=== PATIENT | female | born 1960 | race American Indian/Alaskan Native ===

== ENCOUNTER 2016-03-22 12:30 | Outpatient (CLI) | payer MEDICAID ==
--- NOTE | 2016-03-22 15:46 | XRay Report ---
CHEST 2 VIEWS: INDICATION: Cough, shortness of breath. COMPARISON: 05/01/2013 CXR and 11/04/[address] findings. FINDINGS: Frontal and lateral chest radiographs demonstrate interval progression of right lung volume loss with diffuse haziness in the xwccq-ye-hmo lung zone with additional infiltrates in the lower lung zone medially, including juxtaphrenic peak. Rightward tracheal deviation and cardiomediastinal shift also appears slightly more pronounced, though exam in part limited due to patient rotation. Clear left lung. Stable right chest port tip likely in the right atrium, approximately 6 cm below the cavoatrial junction. Unremarkable bones. CONCLUSION: Extensive chronic right lung volume loss again noted with mild interval plain radiographic progression since April 2013 in this patient with history of lung cancer, as described. Thank you for the opportunity to participate in this patient's care.
== END 2016-03-22 12:31 | disposition home or self-care (01) ==
LOC: SPVIMAG 12:30
PROVIDERS: ATTEND Internal Medicine Hematology & Oncology
DX: R06.02 Shortness of breath (principal); R05 Cough; R91.8 Other nonspecific abnormal finding of lung field
CPT/HCPCS: 71020

== ENCOUNTER 2016-06-02 08:08 | Outpatient (CLI) | payer MEDICAID ==
--- NOTE | 2016-06-02 16:03 | Cat Scan Report ---
CT CHEST, ABDOMEN AND PELVIS WITH CONTRAST: 06/02/16 08:08:00 CLINICAL: Metastatic lung cancer followup. COMPARISON: 11/04/15 TECHNIQUE: Volumetric acquisition and 1.25 millimeter scan reconstructions after the uneventful intravenous injection of 100 cc of Omnipaque 300. Consent was obtained prior to the administration of the contrast. Oral contrast was also given. FINDINGS: Chest: Stable weight loss in the right lung and stable nonenhancing soft tissue opacity of the right upper lobe and superior segment of the right lower lobe. No pulmonary nodule and no enhancing mass. No pleural effusion. Normal aorta, heart and pulmonary arteries. A right Gejcgv-d-Ybrp tip is in the right atrium. Normal esophagus and trachea. No mediastinal or hilar lymphadenopathy.No axillary or supraclavicular lymphadenopathy. Abdomen: Normal liver, gallbladder and bile ducts. No liver mass. The adrenal glands and kidneys are normal. The renal collecting systems and ureters are nondilated. Normal stomach, duodenum, pancreas and spleen. Mild calcification of the abdominal aorta. The inferior vena cava is normal. No mass or lymphadenopathy.No ascites.Normal small bowel. Normal ascending, transverse and descending colon. The appendix is normal. Pelvis: Small bicornuate uterus. Ovaries are not identified. The urinary bladder wall is grossly thick with no mass or calculus. Normal rectum and sigmoid colon. No pelvic fluid. Bone windows demonstrate no suspicious bone lesion. IMPRESSION: Stable disease. No mass or lymphadenopathy.
== END 2016-06-02 08:09 | disposition home or self-care (01) ==
LOC: SPVIMAG 08:08
PROVIDERS: ATTEND Internal Medicine Hematology & Oncology
DX: C78.01 Secondary malignant neoplasm of right lung (principal); I70.0 Atherosclerosis of aorta; Q51.3 Bicornate uterus
CPT/HCPCS: 71270; 74178; Q9967

== ENCOUNTER 2016-10-26 08:51 | Outpatient (CLI) | payer MEDICAID ==
--- NOTE | 2016-10-27 15:21 | Cat Scan Report ---
CT CHEST, ABDOMEN AND PELVIS WITH CONTRAST: 10/26/16 08:51:00 CLINICAL: Lung cancer followup. COMPARISON: 06/02/16 TECHNIQUE: Volumetric acquisition and 1.25 millimeter scan reconstructions after the uneventful intravenous injection of 100 cc of Omnipaque 300. Consent was obtained prior to the administration of the contrast. Oral contrast was also given. FINDINGS: Chest: Stable volume loss in the right lung and stable nonenhancing soft tissue opacity of the right upper lobe and superior segment of the right lower lobe. No pulmonary nodule and no enhancing mass. Stable pleural thickening in the right hemithorax. No pleural effusion. Normal aorta, heart and pulmonary arteries. Normal esophagus and trachea. No mediastinal or hilar lymphadenopathy.No axillary or supraclavicular lymphadenopathy. Abdomen: Normal liver, gallbladder and bile ducts. Normal stomach, duodenum, pancreas and spleen. An 8 mm nodule of the medial limb of the left adrenal gland is not significantly changed compared to prior exams. Normal kidneys. Normal aorta and inferior vena cava. No lymphadenopathy.No ascites.Normal small bowel. Normal ascending, transverse and descending colon. Normal appendix. Pelvis: Small bicornuate uterus. Ovaries are not identified. Normal urinary bladder and rectum.. Bone windows demonstrate no suspicious bone lesion. IMPRESSION:Stable disease.
== END 2016-10-26 08:52 | disposition home or self-care (01) ==
LOC: SPVIMAG 08:51
PROVIDERS: ATTEND Internal Medicine Hematology & Oncology
DX: C34.11 Malignant neoplasm of upper lobe, right bronchus or lung (principal); E27.8 Other specified disorders of adrenal gland; Q51.3 Bicornate uterus; F41.9 Anxiety disorder, unspecified; D64.9 Anemia, unspecified
CPT/HCPCS: 71260; 74177; Q9967

== ENCOUNTER 2017-02-20 09:19 | Outpatient (CLI) | payer MEDICAID ==
--- NOTE | 2017-02-20 13:36 | Nuclear Medicine Report ---
NUCLEAR MEDICINE WHOLE-BODY BONE SCAN: 02/20/17 CLINICAL: History of right upper lobe lung cancer COMPARISON: 10/11/15 TECHNIQUE: 25.0-millicuries technetium 99m MDP was injected intravenously and whole body scans were obtained at 3 hours. FINDINGS: Normal distribution of radionuclide in the skeleton. Mild focal uptake in the right upper lobe lung which correlates with previous activity in the right upper lobe lung. No suspicious uptake.Normal urinary tract uptake. IMPRESSION: Negative study with no evidence of metastatic disease.
== END 2017-02-20 09:20 | disposition home or self-care (01) ==
LOC: NM 09:19
PROVIDERS: ATTEND Internal Medicine Hematology & Oncology
DX: C34.11 Malignant neoplasm of upper lobe, right bronchus or lung (principal); D64.9 Anemia, unspecified; F41.9 Anxiety disorder, unspecified
CPT/HCPCS: 78306; A9503

== ENCOUNTER 2017-06-12 08:39 | Outpatient (CLI) | payer MEDICAID ==
[2017-06-12 09:29] LABS: Blood Urea Nitrogen 13 mg/dL (7-17)
--- NOTE | 2017-06-12 14:09 | Nuclear Medicine Report ---
Whole-body bone scan: Right upper lobe lung cancer. Following injection radionuclide whole-body imaging was obtained approximately 3 hours. Normal activity is identified in the urinary tract and there is a relatively good bone to background ratio. Thank areas of increased bone activity are identified at L1, L3 and L4 seen only in the frontal projection. No other unusual areas of radio tracer uptake are identified. Comparison is made to prior exams dating back to October 2015. The distribution of radionuclide including the lumbar spine is unchanged. Impression: Stable exam. The findings of increased radiotracer uptake in the lumbar spine are unlikely to represent malignancy.
--- NOTE | 2017-06-12 14:28 | Cat Scan Report ---
CT chest, abdomen, pelvis, with contrast: Right upper lobe malignancy. Transverse images are obtained from the thoracic inlet to the ischium with coronal and sagittal 2-D reformatted images. IV and oral contrast administered. Comparison is made to prior exam on October 26, 2016. There is no obvious axillary hilar or mediastinal adenopathy appreciated. There is marked volume loss in the right lung with nonenhancing opaque tissue occupying most of the right hemithorax surrounding residual airways. There is a significant retraction shift of the mediastinum. No additional pulmonary nodules are identified in the right lung nor in the left lung. No lytic or blastic bone lesions noted. Sections carried through the abdomen again demonstrates a stable small nodule involving the medial limb of the left adrenal gland. A small peripheral cyst is noted in the right superior lateral kidney. Most of the contrast in the colon. No bowel abnormality identified. The mesentery is unremarkable. There is no periaortic adenopathy. The abdominal aorta is normal in size and contour. There is a bicornuate uterus. No significant bone lesions. Impressions: 1. Stable findings in the right upper lobe with no indication of recurrent malignancy. 2. No metastasis identified.
== END 2017-06-12 08:40 | disposition home or self-care (01) ==
LOC: NM 08:39
PROVIDERS: ATTEND Internal Medicine Hematology & Oncology
DX: C34.11 Malignant neoplasm of upper lobe, right bronchus or lung (principal); N28.1 Cyst of kidney, acquired; E27.8 Other specified disorders of adrenal gland; F41.9 Anxiety disorder, unspecified; D64.9 Anemia, unspecified; Z92.21 Personal history of antineoplastic chemotherapy
CPT/HCPCS: 36415; 71260; 74177; 78306; 82565; 84520; A9503; Q9967

== ENCOUNTER 2017-11-12 08:07 | Outpatient (CLI) | payer MEDICAID ==
[2017-11-12 09:25] LABS: Blood Urea Nitrogen 13 mg/dL (7-17)
--- NOTE | 2017-11-12 14:14 | Nuclear Medicine Report ---
BONE SCAN: History: Lung cancer. Comparison: CT chest abdomen and pelvis performed the same day. After injection of isotope, gamma camera imaging of the bony system was done. There is a normal uptake of isotope throughout the bony structures without areas of significantly increased or decreased uptake. Normal uptake in the urinary system is seen. IMPRESSION: Negative bone scan.
--- NOTE | 2017-11-12 15:13 | Cat Scan Report ---
CT CHEST WITH CONTRAST: HISTORY: Right lung cancer. COMPARISON: 06/12/17. TECHNIQUE: Helical CT in 1.25mm intervals following IV contrast. Sagittal and coronal reformatted images. FINDINGS: Thyroid gland: Normal. Esophagus: Normal. Heart: Normal. Pericardium: Normal. Mediastinum: No mediastinal mass or adenopathy is detected. Lung Irizarry: Extensive volume loss in the right upper lung with evidence of bronchiectasis is again noted. This is probably secondary to radiation changes. There is mild mediastinal shift to the right which is stable. Mild underlying centrilobular emphysematous changes are identified. No recurrent mass or nodule is appreciated. Pleural Spaces: Trace right pleural fluid is noted. No pleural nodularity. Musculoskeletal: No suspicious bony lesion or fracture is identified. IMPRESSION: Stable findings in the chest with no evidence of disease recurrence or metastasis since 06/12/17.
--- NOTE | 2017-11-12 15:16 | Cat Scan Report ---
CT ABDOMEN PELVIS WITH CONTRAST: HISTORY: Right lung cancer. COMPARISON: 06/12/17. TECHNIQUE: Helical CT in 1.25mm intervals following IV contrast. Sagittal and coronal reconstructions. FINDINGS: Liver: Normal. Biliary system: Normal. Pancreas: Normal. Spleen: Normal. Kidneys/ureters/bladder: Normal. Subcentimeter cyst in the superior right kidney is again noted. Adrenal glands: Subcentimeter nodule in the medial left adrenal gland is unchanged. This may represent an adrenal adenoma. The right adrenal gland remains normal. Aorta: Normal. Intestines: Normal. Appendix: Normal. Pelvic viscera: It is unclear if there is a bicornate uterus or possibly partial hysterectomy, correlate with history. No suspicious pelvic mass, cyst or adenopathy. Ascites: None. Adenopathy: None. Musculoskeletal: No suspicious bony lesion or fracture is identified. IMPRESSION: No evidence for metastatic disease to the abdomen or pelvis. No change since 06/12/17.
== END 2017-11-12 08:08 | disposition home or self-care (01) ==
LOC: NM 08:07
PROVIDERS: ATTEND Internal Medicine Hematology & Oncology
DX: C34.11 Malignant neoplasm of upper lobe, right bronchus or lung (principal); Z90.721 Acquired absence of ovaries, unilateral; Z90.12 Acquired absence of left breast and nipple; Z87.891 Personal history of nicotine dependence
CPT/HCPCS: 36415; 71260; 74177; 78306; 82565; 84520; A9503; Q9967

== ENCOUNTER 2018-08-23 10:27 | Outpatient (CLI) | payer MEDICAID ==
[2018-08-23 11:36] LABS: Blood Urea Nitrogen 13 mg/dL (7-17)
--- NOTE | 2018-08-23 14:55 | Cat Scan Report ---
CT ABDOMEN PELVIS WITH CONTRAST: HISTORY: Malignant neoplasm of upper lobe right lung. COMPARISON: 05/28/18. TECHNIQUE: Helical CT in 1.25mm intervals following IV contrast. Sagittal and coronal reconstructions. FINDINGS: Lung bases: There is volume loss and scarring in the visualized right lower lobe. Trace right pleural fluid. Liver: Normal. Biliary system: Normal. Pancreas: Normal. Spleen: Normal. Kidneys/ureters/bladder: Normal. Adrenal glands: Normal. Aorta: Mild diffuse calcifications. No stenosis or aneurysm. Intestines: Normal. Appendix: Normal. Pelvic viscera: Normal. Ascites: None. Adenopathy: None. Musculoskeletal: Intact. No suspicious bony lesion is identified. IMPRESSION: No evidence for metastatic disease to the abdomen or pelvis. Stable findings since 05/28/18.
--- NOTE | 2018-08-23 14:58 | Cat Scan Report ---
CT CHEST WITH CONTRAST: HISTORY: Malignant neoplasm of upper lobe right lung. COMPARISON: 05/28/18. TECHNIQUE: Helical CT in 1.25mm intervals following IV contrast. Sagittal and coronal reformatted images. FINDINGS: Thyroid gland: Normal. Esophagus: Normal. Heart: Normal. Pericardium: Normal. Mediastinum: No evidence for mediastinal mass or adenopathy. Lung Irizarry: There is volume loss and consolidation throughout much of the right upper lung which presumably represents radiation changes. Cystic bronchiectasis is noted in the right upper lung. There are mild emphysematous changes in the left lung. No evidence for recurrent lung nodule or mass. Pleural Spaces: Trace right pleural effusion. Musculoskeletal: Intact. No suspicious bony lesion is identified. IMPRESSION: Assumed radiation changes to the right lung. No evidence for disease metastasis or recurrence. Stable findings since 05/28/18.
== END 2018-08-23 10:28 | disposition home or self-care (01) ==
LOC: CT 10:27
PROVIDERS: ATTEND Internal Medicine Hematology & Oncology
DX: C34.11 Malignant neoplasm of upper lobe, right bronchus or lung (principal); I10 Essential (primary) hypertension
CPT/HCPCS: 36415; 71260; 74177; 82565; 84520; Q9967

== ENCOUNTER 2018-09-12 08:20 | Outpatient (CLI) | payer MEDICAID ==
[2018-09-12 10:41] LABS: Chol/HDL Ratio 3.35 %
[2018-09-15 12:57] LABS: Vitamin D, 25-OH, D2 <4 ng/mL
== END 2018-09-12 08:21 | disposition home or self-care (01) ==
LOC: LAB 08:20
PROVIDERS: ATTEND Internal Medicine
DX: Z13.1 Encounter for screening for diabetes mellitus (principal); Z13.220 Encounter for screening for lipoid disorders; Z13.21 Encounter for screening for nutritional disorder
CPT/HCPCS: 36415; 80061; 82306; 82607; 83036; 84443

== ENCOUNTER 2018-09-26 10:31 | Outpatient (CLI) | payer MEDICAID ==
[2018-09-26 12:33] LABS: Free T4 (Free Thyroxine) 0.93 ng/dL (0.76-1.46)
== END 2018-09-26 10:32 | disposition home or self-care (01) ==
LOC: LAB 10:31
PROVIDERS: ATTEND Internal Medicine
DX: R94.6 Abnormal results of thyroid function studies (principal)
CPT/HCPCS: 36415; 84439; 84443

== ENCOUNTER 2018-10-03 08:29 | Outpatient (CLI) | payer MEDICAID ==
--- NOTE | 2018-10-03 11:22 | Vascular Lab Report ---
DUPLEX DOPPLER LOWER EXTREMITY ARTERIAL, BILATERAL INDICATION: I73.9, PERIPHERAL VASCULAR DISEASE, UNSPECIFIED. TECHNIQUE: Arterial duplex examination of both lower extremities performed using B-mode, color flow and spectral Doppler assessment. FINDINGS: RIGHT: Common Femoral Artery: PSV 126 cm/sec. Triphasic waveform. Proximal SFA: PSV 110 cm/sec. Triphasic waveform. Mid SFA: PSV 93 cm/sec. Triphasic waveform. Distal SFA: PSV 88 cm/sec. Triphasic waveform. Popliteal artery: PSV 72 cm/sec. Triphasic waveform. Posterior tibial artery: PSV 53 cm/sec. Triphasic waveform. Anterior tibial artery: PSV 33 cm/sec. Triphasic waveform. LEFT: Common Femoral Artery: PSV 127 cm/sec. Triphasic waveform. Proximal SFA: PSV 109 cm/sec. Triphasic waveform. Mid SFA: PSV 87 cm/sec. Triphasic waveform. Distal SFA: PSV 82 cm/sec. Triphasic waveform. Popliteal artery: PSV 80 cm/sec. Triphasic waveform. Posterior tibial artery: PSV 63 cm/sec. Triphasic waveform. Anterior tibial artery: PSV 30 cm/sec. Triphasic waveform. IMPRESSION: No significant lower extremity peripheral artery disease. Doppler Waveform: * Triphasic is normal. * Biphasic is abnormal if clear transition from triphasic signal along vascular tree. * Monophasic is abnormal. Signer Name: Vincent Ball Jr, MD Signed: 10/03/2018 11:18 AM Workstation Name: [id number]
== END 2018-10-03 08:30 | disposition home or self-care (01) ==
LOC: VAS 08:29
PROVIDERS: ATTEND Internal Medicine
DX: I73.9 Peripheral vascular disease, unspecified (principal)
CPT/HCPCS: 93925

== ENCOUNTER 2019-02-13 09:40 | Outpatient (CLI) | payer MEDICAID ==
[2019-02-13 11:43] LABS: Chol/HDL Ratio 3.46 %
[2019-02-17 13:18] LABS: Vitamin D, 25-OH, D2 12 ng/mL
== END 2019-02-13 09:41 | disposition home or self-care (01) ==
LOC: LAB 09:40
PROVIDERS: ATTEND Internal Medicine
DX: E78.5 Hyperlipidemia, unspecified (principal); E55.9 Vitamin D deficiency, unspecified
CPT/HCPCS: 36415; 80061; 82306

== ENCOUNTER 2019-02-20 07:21 | Outpatient (CLI) | payer MEDICAID ==
[2019-02-20 08:28] LABS: Blood Urea Nitrogen 11 mg/dL (7-17)
--- NOTE | 2019-02-20 12:08 | Cat Scan Report ---
CT CHEST, ABDOMEN AND PELVIS WITH CONTRAST HISTORY: Follow-up malignant neoplasm right upper lobe lung. COMPARISON: 08/23/2018 TECHNIQUE: CT images of the chest, abdomen and pelvis were obtained following administration of intra venous contrast. Consent was obtained prior to the administration of contrast. Oral contrast was also given.Note: All CT scans at this location are performed using CT dose reduction employed for ALARA b y means of automated exposure control. CONTRAST: 100 ml of Omnipaque 300. FINDINGS: CT CHEST: Heart and Pericardium: No significant abnormality. Vasculature: No significant abnormality. Lymphatics: No lymphadenopathy. Lungs: No pulmonary nodule or mass. Stable small right pleural effusion Trachea and Bronchi: Stable volume loss of much of the right lung. Osseous Structures: Normal CT ABDOMEN: Liver: No significant abnormality. No liver mass or nodule. Biliary: No significant abnormality. Normal gallbladder and bile ducts. Spleen: No significant abnormality. Unenlarged. Pancreas: No significant abnormality. Adrenals: No significant abnormality. Kidneys: No significant abnormality. Lymphatics: No lymphadenopathy. Vasculature: No significant abnormality. Bowel/Peritoneum: No significant abnormality. No free air. No free fluid. Normal appendix. CT PELVIS: : Normal uterus and urinary bladder. A stable 2.7 cm cyst of the vagina. Normal right ovary measuri ng 4.2 x 2.7 cm. A left ovary is not identified. Normal rectum. Mild sigmoid ethmoid diverticulosis b ut no diverticulitis. Physiologic free fluid in the pelvis. Osseous Structures: Normal Additional Findings: None IMPRESSION: 1. Stable volume loss of the right lung and stable small right pleural effusion. 2. No evidence of disease recurrence or metastasis. 3. Normal abdomen. 4. Mild sigmoid diverticulosis but no diverticulitis. 5. Bartholin cyst of the vagina. Signer Name: Karthik Nolan MD Signed: 02/20/2019 12:04 PM Workstation Name: [id number]
== END 2019-02-20 07:22 | disposition home or self-care (01) ==
LOC: CT 07:21
PROVIDERS: ATTEND Internal Medicine Hematology & Oncology
DX: K57.90 Diverticulosis of intestine, part unspecified, without perforation or abscess without bleeding (principal); N75.0 Cyst of Bartholin's gland; C34.11 Malignant neoplasm of upper lobe, right bronchus or lung
CPT/HCPCS: 36415; 71260; 74177; 82565; 84520; Q9967

== ENCOUNTER 2019-12-17 08:31 | Outpatient (CLI) | payer MEDICAID ==
[2019-12-17 09:20] LABS: Blood Urea Nitrogen 15 mg/dL (7-17)
--- NOTE | 2019-12-17 12:33 | Cat Scan Report ---
CT CHEST, ABDOMEN, AND PELVIS WITH IV CONTRAST INDICATION / CLINICAL INFORMATION: LUNG CA. TECHNIQUE: Axial CT images were obtained through the chest, abdomen, and pelvis after 100 cc Omnipaque [address] All [address] scans at this location are performed using CT dose reduction for ALARA by means of aut omated exposure control. COMPARISON: CT chest abdomen pelvis 02/20/2019 and priors; nuclear medicine bone scan 03/11/2018 FINDINGS: NECK BASE: No significant abnormality. HEART: No significant abnormality. MEDIASTINUM and RUSTY: No significant abnormality. LUNGS/PLEURA: Overall stable appearance of the right lung with complete upper lobe volume loss and so me aeration of the middle and lower lobes. Right-sided tubular bronchiectasis is present. Rightward m ediastinal shift from volume loss. No mass or suspicious nodule in the aerated right lung. Left lung demonstrates moderate emphysema and is expanded without mass or suspicious nodule. No pneumothorax. No new or increased effusion. HEPATOBILIARY: No significant abnormality. PANCREAS: No significant abnormality. SPLEEN: No significant abnormality. ADRENALS: No significant abnormality. GENITOURINARY: No significant abnormality. GASTROINTESTINAL/MESENTERY: No significant abnormality. RETROPERITONEUM: No significant adenopathy. REPRODUCTIVE ORGANS: Stable right-sided Bartholin cyst. VASCULAR: Mild atherosclerotic calcification without acute abnormality. Port device with central veno us catheter at the distal SVC. SKELETAL SYSTEM: Sclerotic appearance of the manubrial aspect of the sternal manubrial junction which is significant only change when compared to 03/11/2018 CT examination, also date of last nuclear medic ine bone scan. Remaining osseous structures demonstrate no fracture and there is diffuse degenerative change. ADDITIONAL FINDINGS: None. IMPRESSION: 1. Stable appearance of the right lung with bronchiectasis and volume loss likely posttherapeutic in nature. No evidence of local recurrent disease. 2. Sclerotic appearance of the distal manubrium at the sternal manubrial junction. Finding is signifi cant change when compared to 03/11/2018 CT examination (also date of last nuclear medicine bone scan). Metastatic focus not excluded. Consider further evaluation as warranted. 3. Additional findings as above. Signer Name: Darin Beard MD Signed: 12/17/2019 12:27 PM Workstation Name: [id number]
== END 2019-12-17 08:32 | disposition home or self-care (01) ==
LOC: CT 08:31
PROVIDERS: ATTEND Internal Medicine Hematology & Oncology
DX: C34.11 Malignant neoplasm of upper lobe, right bronchus or lung (principal); I10 Essential (primary) hypertension; K21.9 Gastro-esophageal reflux disease without esophagitis; I25.10 Atherosclerotic heart disease of native coronary artery without angina pectoris; N75.0 Cyst of Bartholin's gland
CPT/HCPCS: 36415; 71260; 74177; 82565; 84520; Q9967

== ENCOUNTER 2020-02-13 10:37 | Outpatient (CLI) | payer MEDICAID ==
--- NOTE | 2020-02-13 14:45 | Nuclear Medicine Report ---
NUCLEAR MEDICINE BONE SCAN, WHOLE BODY INDICATION / CLINICAL INFORMATION: MALIGNANT NEOPLASMOF UPPER LOBE. TECHNIQUE: 25.3 mCi of Tc-99m MDP were injected IV. Images were obtained of the whole body. COMPARISON: Prior nuclear medicine whole-body bone scan dated 03/11/2018. Recent chest abdomen pelvis CT dated 12/03. FINDINGS: BONES: There is a new focus of mild increased uptake at the sternomanubrial junction which was not se en on prior nuclear medicine bone scan and correlates to the previously noted sclerotic focus on CT c hest abdomen pelvis dated 12/17/2019. Additional small foci of increased uptake in the mandible likel y related to dental disease and were noted on prior exam. JOINTS: Degenerative activity noted in bilateral glenohumeral and AC joints consistent with degenerat austin changes.. SOFT TISSUES: No significant abnormality. KIDNEYS: Mild hang up of radiotracer in the bilateral renal collecting system. ADDITIONAL FINDINGS: None. IMPRESSION: 1. Focus of increased uptake at the sternal manubrial junction correlates with recently described scl erotic focus on CT chest abdomen pelvis dated 12/17/2019. Because manubrial activity is new/increasin g, differential considerations remain broad including radiation change, new but treated metastatic le kamlesh, or radiation-induced lesion. Continued follow-up is recommended. Report dictated by: Leonid Hooper MD Report dictated on: 02/13/2020 1:34 PM I have reviewed the images, agree with this report, and edited this report as needed. Signer Name: Steve Blake MD Signed: 02/13/2020 2:41 PM Workstation Name: [id number]
== END 2020-02-13 10:38 | disposition home or self-care (01) ==
LOC: NM 10:37
PROVIDERS: ATTEND Internal Medicine Hematology & Oncology
DX: C34.11 Malignant neoplasm of upper lobe, right bronchus or lung (principal); I10 Essential (primary) hypertension; K21.9 Gastro-esophageal reflux disease without esophagitis; M17.0 Bilateral primary osteoarthritis of knee
CPT/HCPCS: 78306; A9503

== ENCOUNTER 2020-03-15 09:14 | Outpatient (CLI) | payer MEDICAID ==
--- NOTE | 2020-03-15 11:43 | Magnetic Resonance Report ---
MR brain wo con INDICATION / CLINICAL INFORMATION: 58 years Female; LIGHT HEADENESS,BLURRY VISION,MALIGNANT NEOPLASM OF UPPER LOBE. TECHNIQUE: Multiplanar, multisequence MR images of the brain were obtained. COMPARISON: The study is compared to the previous MRI of 08/18/2019. FINDINGS: BRAIN / INTRACRANIAL CONTENTS: There is extensive cerebral white matter disease most consistent with microvascular angiopathy at. The findings correlate with the previous exam of. The diffusion imaging reveals no evidence of acute infarction. On the susceptibility weighted imaging, there are a a few pe rsistent foci of decreased signal involving the left cerebellum and cerebral white matter most consis tent with chronic microhemorrhages. The findings are unchanged. There is mild cerebral and cerebellar atrophy with associated mild prominence of the ventricular syst em which appears unchanged. No developing extra-axial fluid collections or significant mass effect is identified. CRANIOCERVICAL JUNCTION: No significant abnormality. 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 The distal internal carotid arteries again demonstrate appropriate signal voids. ORBITS: No significant abnormality of visualized orbits. SINUSES / MASTOIDS: No significant abnormality in the visualized paranasal sinuses or mastoid air kelsi ls. ADDITIONAL FINDINGS: There is a small incidental cyst projected superficial to the right parotid glan d which is unchanged and most likely reflects incidental first branchial cleft cyst IMPRESSION: 1. There is continued extensive microvascular angiopathy without evidence of recent infarction or sig nificant interval change from 08/18/2019. Signer Name: Simone Thayer MD Signed: 03/15/2020 11:39 AM Workstation Name: [id number]
== END 2020-03-15 09:15 | disposition home or self-care (01) ==
LOC: MRI 09:14
PROVIDERS: ATTEND Internal Medicine Hematology & Oncology
DX: G31.89 Other specified degenerative diseases of nervous system (principal); C34.11 Malignant neoplasm of upper lobe, right bronchus or lung; I10 Essential (primary) hypertension; K21.9 Gastro-esophageal reflux disease without esophagitis
CPT/HCPCS: 70551

== ENCOUNTER 2020-04-28 10:20 | Outpatient (CLI) | payer MEDICAID ==
--- NOTE | 2020-04-28 11:41 | XRay Report ---
CHEST 2 VIEWS INDICATION / CLINICAL INFORMATION: CONGESTION, COUGH, WHEEZING. COMPARISON: 03/22/2016 FINDINGS: SUPPORT DEVICES: Right central venous line HEART / MEDIASTINUM: No significant abnormality. LUNGS / PLEURA: Chronic changes in the right hemithorax No pneumothorax. ADDITIONAL FINDINGS: No significant additional findings. IMPRESSION: Chronic changes in the right hemithorax. No definite acute disease or interval change from 03/22/2016 Signer Name: Nilson Spicer MD FACR Signed: 04/28/2020 11:36 AM Workstation Name: [id number]
== END 2020-04-28 10:21 | disposition home or self-care (01) ==
LOC: SPVIMAG 10:20
PROVIDERS: ATTEND Internal Medicine Hematology & Oncology
DX: C34.11 Malignant neoplasm of upper lobe, right bronchus or lung (principal); I10 Essential (primary) hypertension; K21.9 Gastro-esophageal reflux disease without esophagitis; D50.8 Other iron deficiency anemias
CPT/HCPCS: 71046

== ENCOUNTER 2020-06-11 11:52 | Outpatient (CLI) | payer MEDICAID ==
[2020-06-11 12:44] LABS: Blood Urea Nitrogen 12 mg/dL (7-17)
--- NOTE | 2020-06-11 16:23 | Cat Scan Report ---
CT CHEST, ABDOMEN, AND PELVIS WITH CONTRAST INDICATION: Restaging lung cancer CONTRAST: 100 cc Omnipaque 300 IV COMPARISON: 12/17/[address] scans at this location are performed using CT dose reduction for ALARA by means of automated e xposure control. FINDINGS: The mixed lytic and sclerotic area in the manubrium of the sternal is not significantly jeremie nged. No new focal bony lesions are seen. Port-A-Cath is seen in the superior vena cava. No significant axillary or chest wall abnormalities ar e seen. Right lung volume loss and right mediastinal shift are unchanged from previous study. Pleural parenchymal thickening, particularly in the upper right hemithorax, is again seen without change. Th ickened appearance of the right hilar region is unchanged. Left hilum shows no abnormalities. No defi nite mediastinal masses are seen. Right lung continues to show mild areas of aeration similar to the prior study but with patchy areas of chronic atelectasis as well. Bullous changes are again seen. Bro nchiectasis is again noted in the right upper lobe. Left lung shows chronic changes but no obvious ac mariel infiltrates and no nodules or masses. No definite pleural effusions are seen. No endobronchial le sions are detected. No pneumothorax or pneumomediastinum are noted. The abdomen and pelvis are imaged in an early phase of contrast. Liver shows mild fatty infiltration without significant enlargement. No focal lesions are seen. Small hypodensity in the upper central sp kevin is unchanged and probably is a small cyst. I see no abnormalities of the right adrenal, pancreas , bile ducts, or gallbladder, although the gallbladder is contracted. Small left adrenal nodule is st able. The kidneys show again small probable cortical cysts. No urinary obstructive changes are seen. No lymphadenopathy is seen in the abdomen or pelvis. No free fluid is noted. No inflammatory changes are seen. No evidence of bowel obstruction is noted. Appendix appears within normal limits. IMPRESSION: Stable appearance Signer Name: Suman Baxter MD Signed: 06/11/2020 4:19 PM Workstation Name: [id number]
== END 2020-06-11 11:53 | disposition home or self-care (01) ==
LOC: CT 11:52
PROVIDERS: ATTEND Internal Medicine Hematology & Oncology
DX: C34.11 Malignant neoplasm of upper lobe, right bronchus or lung (principal); D50.8 Other iron deficiency anemias; I10 Essential (primary) hypertension; K21.9 Gastro-esophageal reflux disease without esophagitis; R91.8 Other nonspecific abnormal finding of lung field; J98.11 Atelectasis; J47.9 Bronchiectasis, uncomplicated; K76.0 Fatty (change of) liver, not elsewhere classified; N28.1 Cyst of kidney, acquired; D73.4 Cyst of spleen
CPT/HCPCS: 36415; 71260; 74177; 82565; 84520; Q9967

== ENCOUNTER 2021-01-04 09:03 | Outpatient (CLI) | payer MEDICAID ==
[2021-01-04 10:38] LABS: Blood Urea Nitrogen 13 mg/dL (7-17)
--- NOTE | 2021-01-04 13:37 | Nuclear Medicine Report ---
NUCLEAR MEDICINE BONE SCAN, WHOLE BODY INDICATION: C34.11. Lung cancer restaging TECHNIQUE: 27.5 mCi of Tc-99m MDP were injected IV. Whole body images were obtained. Whole body bone scan 020, CT chest abdomen pelvis 06/11/2020 COMPARISON: No relevant prior imaging study available. FINDINGS: Skeletal Structures: No focal areas of asymmetric activity. Mild, relatively symmetric, periarticular activity which is likely degenerative. Skeletal Lesions: None. Soft Tissues: Normal. Kidneys: Normal, symmetric activity. Additional Findings: None. IMPRESSION: 1. No significant scintigraphic abnormality. Signer Name: Kenton Siddiqi MD Signed: 01/04/2021 1:33 PM Workstation Name: [id number]
--- NOTE | 2021-01-04 15:03 | Cat Scan Report ---
CT CHEST, ABDOMEN, AND PELVIS WITH CONTRAST INDICATION : LUNG CANCER 100 ML OMNI 300 . Restaging of right lung cancer TECHNIQUE: 100 mL of intravenous contrast administered. Helical imaging with sagittal and coronal r eformated images. All CT scans at this location are performed using CT dose reduction for ALARA by rcik carias of automated exposure control. COMPARISON: 06/11/2020 FINDINGS: CHEST: Partial right pneumonectomy changes and radiation changes are suspected in the superior right lung which appear unchanged. Trace to small right pleural fluid is also unchanged. There are moderat e to severe emphysematous changes bilaterally. No recurrent pulmonary nodule or mass is detected. Hea rt and mediastinal structures remain unremarkable. No bulky adenopathy is detected. Right Infuse-a-Po rt remains in good position. Mild sclerotic changes in the inferior manubrium is again noted and unch anged. It is unclear if this represents a metastatic lesion or related to radiation changes as seen i n the right upper ribs. No new bony lesions. ABDOMEN/PELVIS: The liver is normal size and homogeneous. No hepatic mass. The biliary system, pancr eas, spleen, kidneys and right adrenal gland remain unremarkable. Previously described tiny left adre nal nodule along the medial limb is unchanged. The bowel loops are normal caliber and wall thickness throughout the abdomen. There is moderate fecal retention in the colon. The appendix is normal. There is no evidence for free fluid, free air or flu id collection. The arterial and venous structures appear widely patent and unremarkable. No pathologic adenopathy brambila s developed in the abdomen or pelvis. The bladder and reproductive structures are unremarkable. No suspicious bony lesion has developed in the thoracolumbar spine or pelvis. IMPRESSION: Stable findings since 06/11/2020 exam. No new areas of disease are detected. Signer Name: Vincent Ball Jr, MD Signed: 01/04/2021 2:58 PM Workstation Name: [id number]
== END 2021-01-04 09:04 | disposition home or self-care (01) ==
LOC: NM 09:03
PROVIDERS: ATTEND Internal Medicine Hematology & Oncology
DX: C34.11 Malignant neoplasm of upper lobe, right bronchus or lung (principal); E86.9 Volume depletion, unspecified; Z41.8 Encounter for other procedures for purposes other than remedying health state; D70.9 Neutropenia, unspecified; E53.8 Deficiency of other specified B group vitamins; D64.81 Anemia due to antineoplastic chemotherapy; R05.9 Cough, unspecified; T45.1X5D Adverse effect of antineoplastic and immunosuppressive drugs, subsequent encounter; E87.6 Hypokalemia; E86.0 Dehydration; I10 Essential (primary) hypertension; K21.9 Gastro-esophageal reflux disease without esophagitis; M89.9 Disorder of bone, unspecified; N76.4 Abscess of vulva; E55.9 Vitamin D deficiency, unspecified; L02.92 Furuncle, unspecified; R42 Dizziness and giddiness; R00.0 Tachycardia, unspecified; D64.9 Anemia, unspecified; D50.8 Other iron deficiency anemias; K90.49 Malabsorption due to intolerance, not elsewhere classified; J06.9 Acute upper respiratory infection, unspecified; J43.9 Emphysema, unspecified; J81.1 Chronic pulmonary edema
CPT/HCPCS: 36415; 71260; 74177; 78306; 82565; 84520; A9503; Q9967

== ENCOUNTER 2021-07-28 10:37 | Outpatient (CLI) | payer MEDICAID ==
[2021-07-28 12:02] LABS: Blood Urea Nitrogen 14 mg/dL (7-17)
--- NOTE | 2021-07-28 14:47 | Cat Scan Report ---
CT CHEST, ABDOMEN, AND PELVIS WITH CONTRAST INDICATION / CLINICAL INFORMATION: METASTAIC LUNG CANCER 100 ml omni 300. TECHNIQUE: Axial CT images were obtained through the chest, abdomen, and pelvis after 100 cc of Omnip aque [address] scans at this location are performed using CT dose reduction for ALARA b y means of automated exposure control. COMPARISON: 01/04/2021 FINDINGS: HEART: No acute abnormality. No significant change. CORONARY ARTERY CALCIFICATION: Absent -- None. THORACIC AORTA: No significant abnormality. MEDIASTINUM / RUSTY: There is soft tissue density in the region of the right hilum and right mediastin um similar to the previous exam. The appearance of the mediastinum is unchanged. PLEURA: There is pleural thickening and pleural soft tissue particularly in the right upper chest. Pa renchymal opacity in the right lung is again noted and appears relatively unchanged. Volume loss in t he right hemithorax. The overall appearance of the right lung is not significantly changed there is a stable cavitary area in the anterior upper right lung. There is scattered bullous disease in the lef t lung. The left lung is unchanged in appearance.. No pneumothorax. ADDITIONAL CHEST FINDINGS: There is a stable small subcentimeter pericardial lymph node. LIVER: No significant abnormality. GALLBLADDER: No significant abnormality. BILE DUCTS: No significant abnormality. PANCREAS: No significant abnormality. SPLEEN: No significant abnormality. ADRENALS: Left adrenal nodule appears unchanged. RIGHT KIDNEY / URETER: There is a stable cyst in the right kidney. No significant change. LEFT KIDNEY / URETER: No significant abnormality. STOMACH and SMALL BOWEL: No significant abnormality. COLON: No significant abnormality. APPENDIX: No significant abnormality. PERITONEUM: No free fluid. No free air. No fluid collection. LYMPH NODES: No significant adenopathy. AORTA / ARTERIES: No significant abnormality. IVC / VEINS: No significant abnormality. URINARY BLADDER: No significant abnormality. REPRODUCTIVE ORGANS: There is some fluid density noted in the perineum near the vaginal orifice. This is unchanged. This may represent a cyst in the distal vagina. This measures 2 x 1.2 cm. This is stab le since at least 2018. ADDITIONAL FINDINGS: None. SKELETAL SYSTEM: There is sclerotic change in the inferior aspect of the manubrium which appears savannah lar to prior study IMPRESSION: 1. No significant interval change. The prominent changes in the right lung including abnormal soft ti ssue density in the pleura and upper chest involving the right hilum and right mediastinum is stable. Small left adrenal nodule is stable. 2. Sclerotic change in the manubrium is noted and appears unchanged. There is periosteal reaction fartun ng the posterior aspect of the right ribs involving the second, third, fourth, fifth, sixth, seventh, eighth, and ninth ribs. This is unchanged. 3. Not mentioned above the tip of the Port-A-Cath is in the right ventricle. Signer Name: George Esteban MD Signed: 07/28/2021 2:43 PM Workstation Name: [id number]
--- NOTE | 2021-07-28 14:58 | Nuclear Medicine Report ---
NUCLEAR MEDICINE BONE SCAN, WHOLE BODY INDICATION: LUNG CA C34.11/I10. TECHNIQUE: 25.2 mCi of Tc-99m MDP were injected IV. Whole body images were obtained. COMPARISON: CT aguero scan from today and bone scan from 01/04/2021. FINDINGS: Skeletal Structures/Lesions: Presumed degenerative uptake seen in the shoulders and involving each st ernoclavicular junction. No convincing metastatic uptake on this exam. Soft Tissues: Normal. Kidneys: Normal, symmetric activity. Additional Findings: None. IMPRESSION: 1. No metastatic uptake identified.. Signer Name: Brian Johnson MD Signed: 07/28/2021 2:53 PM Workstation Name: [id number]
== END 2021-07-28 10:38 | disposition home or self-care (01) ==
LOC: NM 10:37
PROVIDERS: ATTEND Internal Medicine Hematology & Oncology
DX: J92.9 Pleural plaque without asbestos (principal); C34.11 Malignant neoplasm of upper lobe, right bronchus or lung
CPT/HCPCS: 36415; 71260; 74177; 78306; 82565; 84520; A9503; Q9967